=== PATIENT | male | born 1935 | race Caucasian/White ===

== ENCOUNTER 2017-10-15 08:34 | Emergency (ER) | payer MEDICARE ==
[2017-10-15 08:43] VITALS: BMI 26.5
[2017-10-15 08:44] VITALS: BP 203/79; PULSE 80; RESP 20; TEMP 96.4
[2017-10-15 08:52] VITALS: O2SAT 98
[2017-10-15 09:52] LABS: BASO % 0.5 % (0.0-2.0); EOS # 0.2 K/uL (0.0-0.7); EOS % 2.7 % (0.0-4.0); HEMATOCRIT 34.5 % (35.0-51.0); LYMPH # 1.7 K/uL (1.0-4.3); LYMPH % 29.2 % (20.0-40.0); MEAN CELL VOLUME 89.5 fl (80.0-94.0); MEAN CORPUSCULAR HEMOGLOBIN 30.1 pg (27.0-31.0); MEAN CORPUSCULAR HGB CONC 33.7 g/dL (33.0-37.0); MEAN PLATELET VOLUME 8.2 fl (7.2-11.7); MONO # 0.7 K/uL (0.0-0.8); MONO % 12.7 % (0.0-10.0); NEUT # 3.1 K/uL (1.8-7.0); NEUT % 54.9 % (50.0-75.0); NRBC % 0.3 % (0.0-0.0); RED CELL DISTRIBUTION WIDTH 13.5 % (11.5-14.5); WHITE BLOOD COUNT 5.7 K/uL (4.8-10.8)
[2017-10-15 09:59] LABS: PARTIAL THROMBOPLASTIN TIME 30.1 Seconds (25.6-37.1)
[2017-10-15 10:10] LABS: ALB/GLOB RATIO 1.3 (1.0-2.1); BILIRUBIN,TOTAL 0.9 mg/dl (0.2-1.3); CALCIUM 8.5 mg/dL (8.4-10.2); CARBON DIOXIDE 25 mmol/L (22-30); CHLORIDE 105 mmol/L (98-107); GFR AFRICAN-AMERICAN > 60; GLUCOSE,RANDOM 132 mg/dL (75-110); SODIUM 138 mmol/l (132-148); TOTAL PROTEIN 7.3 G/DL (6.3-8.2)
[2017-10-15 10:17] LABS: ALKALINE PHOSPHATASE 39 U/L (38-126); ALT/SGPT 33 U/L (21-72); AST/SGOT 30 U/L (17-59)
[2017-10-15 10:18] LABS: BLOOD UREA NITROGEN 15 mg/dl (9-20)
[2017-10-15] MEDS ORDERED: Iohexol 300 100 ML IJ ONE (10:48)
[2017-10-15] MEDS ORDERED: Sodium Chloride 0.9% 50 ML IV ONE (10:48)
--- NOTE | 2017-10-15 11:21 | CT ---
PROCEDURE: CT Abdomen and Pelvis with contrast HISTORY: abd pain rectal bleeding COMPARISON: None. TECHNIQUE: Contrast dose: 95 mL Omnipaque 300 Radiation dose: Total exam DLP = 672.7 mGy-cm. This CT exam was performed using one or more of the following dose reduction techniques: Automated exposure control, adjustment of the mA and/or kV according to patient size, and/or use of iterative reconstruction technique. FINDINGS: LOWER THORAX: Bibasilar subpleural fibrotic changes. LIVER: Steatosis. No gross lesion or ductal dilatation. GALLBLADDER AND BILE DUCTS: Unremarkable. PANCREAS: Unremarkable. No gross lesion or ductal dilatation. SPLEEN: Unremarkable. ADRENALS: Unremarkable. No mass. KIDNEYS AND URETERS: Right lower pole 4.2 x 5.8 centimeters cyst. Additional bilateral subcentimeter too small to characterize hypodensities, likely cysts. No hydronephrosis. No solid mass. VASCULATURE: Unremarkable. No aortic aneurysm. BOWEL: Severe colonic diverticulosis without diverticulitis. No obstruction. No gross mural thickening. APPENDIX: Normal appendix. PERITONEUM: Unremarkable. No free fluid. No free air. LYMPH NODES: Prominent right inguinal lymph node measuring 3.0 x 1.7 centimeter (series 3, image 159). BLADDER: Partial herniation into the left inguinal canal. REPRODUCTIVE: Unremarkable. BONES: Spinal and pelvic degenerative changes. OTHER FINDINGS: None. IMPRESSION: Severe colonic diverticulosis without evidence for acute diverticulitis. 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 Additional findings as above. Findings conveyed to Dr. Donovan by Dr. Morrison at 11:17 a.m. on 10/15/2017.
--- NOTE | 2017-10-15 12:11 | ED PDOC ---
HPI: General Adult Time Seen by Provider: 10/15/17 08:51 Chief Complaint (Nursing): GI Problem Chief Complaint (Provider): Rectal bleeding History Per: Patient History/Exam Limitations: no limitations Onset/Duration Of Symptoms: Days (x1) Additional Complaint(s): Angel Harvey is an 82 year old male, with a past medical history of HTN and diabetes, who presents to the emergency department complaining of rectal bleeding and intermittent right sided abdominal pain onset since last night. Patient reports no bleeding in between bowel movements. He denies any rectal pain, vomit, diarrhea or fever. No further medical complaints. PMD: None provided. Past Medical History Reviewed: Historical Data, Nursing Documentation, Vital Signs Vital Signs: Last Vital Signs Temp 96.4 F L 10/15/17 08:43 Pulse 80 10/15/17 08:43 Resp 20 10/15/17 08:43 BP 203/79 H 10/15/17 08:48 Pulse Ox 98 10/25/17 10:43 - Medical History PMH: Diabetes, HTN, Hypercholesterolemia - Surgical History Surgical History: No Surg Hx - Family History Family History: States: Unknown Family Hx - Social History Current smoker - smoking cessation education provided: No Alcohol: None Drugs: Denies - Home Medications Home Medications: Ambulatory Orders Medication Instructions Recorded Furosemide [Lasix] 20 mg PO DAILY 09/30/16 GlipiZIDE [Glipizide] 10 mg PO BID 09/30/16 Losartan [Cozaar] 25 mg PO DAILY 09/30/16 MetFORMIN [glucOPHAGE] 1,000 mg PO BID 09/30/16 Simvastatin [Zocor] 40 mg PO DAILY 09/30/16 amLODIPine [Norvasc] 10 mg PO DAILY 09/30/16 - Allergies Allergies/Adverse Reactions: Allergies Allergy/AdvReac Type Severity Reaction Status Date / Time No Known Allergies Allergy Verified 10/15/17 08:48 Review of Systems ROS Statement: Except As Marked, All Systems Reviewed And Found Negative Constitutional: Negative for: Fever Gastrointestinal: Positive for: Abdominal Pain (intermittent right sided), Other (blood in stool). Negative for: Vomiting, Diarrhea, Rectal Pain Physical Exam - Reviewed Nursing Documentation Reviewed: Yes Vital Signs Reviewed: Yes - Physical Exam Appears: Positive for: Well, Non-toxic, No Acute Distress Head Exam: Positive for: ATRAUMATIC, NORMAL INSPECTION, NORMOCEPHALIC Skin: Positive for: Normal Color, Warm, Dry Eye Exam: Positive for: EOMI, Normal appearance, PERRL Neck: Positive for: Normal, Painless ROM, Supple Cardiovascular/Chest: Positive for: Regular Rate, Rhythm. Negative for: Murmur Respiratory: Positive for: Normal Breath Sounds. Negative for: Respiratory Distress Gastrointestinal/Abdominal: Positive for: Normal Exam, Bowel Sounds, Soft. Negative for: Tenderness, Guarding, Rebound Back: Positive for: Normal Inspection. Negative for: L CVA Tenderness, R CVA Tenderness Rectal: Positive for: Hemorrhoids (external, appear normal. ). Negative for: Tenderness, Other (melena, no bleeding. [employer] vet tech) Extremity: Positive for: Normal ROM. Negative for: Pedal Edema, Deformity, Swelling Neurologic/Psych: Positive for: Alert, Oriented - Laboratory Results Result Diagrams: 10/15/17 09:41 10/15/17 09:41 - ECG O2 Sat by Pulse Oximetry: 98 (RA) Pulse Ox Interpretation: Normal Medical Decision Making Medical Decision Making: Initial Impression: Rectal bleeding. Differential includes: diverticulitis, diverticulosis, hemorrhoids Initial Plan: --Type and screen --Abd & Pelvis IV contrast only --Comp Metabolic Panel --CBC w/ differential --PTT --PT --reevaluation 1119 Abd/Pelvis CT FINDINGS: LOWER THORAX: Bibasilar subpleural fibrotic changes. LIVER: Steatosis. No gross lesion or ductal dilatation. GALLBLADDER AND BILE DUCTS: Unremarkable. PANCREAS: Unremarkable. No gross lesion or ductal dilatation. SPLEEN: Unremarkable. ADRENALS: Unremarkable. No mass. KIDNEYS AND URETERS: Right lower pole 4.2 x 5.8 centimeters cyst. Additional bilateral subcentimeter too small to characterize hypodensities, likely cysts. No hydronephrosis. No solid mass. VASCULATURE: Unremarkable. No aortic aneurysm. BOWEL: Severe colonic diverticulosis without diverticulitis. No obstruction. No gross mural thickening. APPENDIX: Normal appendix. PERITONEUM: Unremarkable. No free fluid. No free air. LYMPH NODES: Prominent right inguinal lymph node measuring 3.0 x 1.7 centimeter (series 3, image 159). BLADDER: Partial herniation into the left inguinal canal. REPRODUCTIVE: Unremarkable. BONES: Spinal and pelvic degenerative changes. OTHER FINDINGS: None. IMPRESSION: Severe colonic diverticulosis without evidence for acute diverticulitis. 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 Additional findings as above. Scribe Attestation: Documented by Wang Martell, acting as a scribe for Yogi Donovan MD Provider Scribe Attestation: All medical record entries made by the Scribe were at my direction and personally dictated by me. I have reviewed the chart and agree that the record accurately reflects my personal performance of the history, physical exam, medical decision making, and the department course for this patient. I have also personally directed, reviewed, and agree with the discharge instructions and disposition. Disposition - Clinical Impression Clinical Impression: Hemorrhoids, Rectal bleeding - Patient ED Disposition Is Patient to be Admitted: No Doctor Will See Patient In The: Office Counseled Patient/Family Regarding: Studies Performed, Diagnosis, Need For Followup - Disposition Referrals: [facility] [Outside] Disposition: Routine/Home Disposition Time: 13:00 Condition: GOOD Additional Instructions: Return for worsening. Follow up with your PCP in 2-3 days. Instructions: Hemorrhoids (ED), Rectal Bleeding (ED)
== END 2017-10-15 13:40 | disposition home or self-care (01) ==
LOC: H.ER 08:34
DX: K64.9 Unspecified hemorrhoids (principal); K62.5 Hemorrhage of anus and rectum; E11.9 Type 2 diabetes mellitus without complications; I10 Essential (primary) hypertension; Z79.84 Long term (current) use of oral hypoglycemic drugs
CPT/HCPCS: 74177; 80053; 85025; 85610; 85730; 86850; 86900; 99282; Q9967

== ENCOUNTER 2019-04-05 11:18 | Emergency (ER) | payer MEDICARE ==
[2019-04-05 11:24] VITALS: BMI 27.9
[2019-04-05 11:26] VITALS: RESP 18
[2019-04-05 11:27] VITALS: O2SAT 99
[2019-04-05] MEDS ORDERED: Albuterol-Ipratrop 3 mg / 0.5 (3 ml) UD INH STA (12:12)
--- NOTE | 2019-04-05 12:15 | ED PDOC ---
HPI: CCC, URI, Sore Throat Time Seen by Provider: 04/05/19 11:36 Chief Complaint (Nursing): Cough, Cold, Congestion Chief Complaint (Provider): cough, SOB History Per: Patient History/Exam Limitations: no limitations Onset/Duration Of Symptoms: Days (1-2 weeks), Gradual Current Symptoms Are (Timing): Still Present Location Of Pain: Throat, Headache (mild) Sick Contacts (Context): None Associated Symptoms: Sore Throat, Cough. denies: Fever, Vomiting, Diarrhea Severity: Moderate Additional Complaint(s): 83yo male c/o cough and mild SOB, ongoing 1-2 weeks, was visiting [place] and returned here yesterday. Denies myalgias, fever, orthopnea or weakness. Denies prior hx asthma or pneumonia. PMD [id number] Past Medical History Reviewed: Historical Data, Nursing Documentation, Vital Signs Vital Signs: Last Vital Signs Temp 97.9 F 04/05/19 11:24 Pulse 77 04/05/19 11:24 Resp 18 04/05/19 11:24 BP 145/64 04/05/19 11:24 Pulse Ox 99 04/05/19 11:24 Primary Care Provider: Procedure,Nonphys - Medical History PMH: Diabetes, HTN, Hypercholesterolemia Denies: Chronic Kidney Disease - Surgical History Surgical History: Hernia Repair, Tonsillectomy - Family History Family History: States: Unknown Family Hx - Home Medications Home Medications: Ambulatory Orders Medication Instructions Recorded Furosemide [Lasix] 20 mg PO DAILY 09/30/16 GlipiZIDE [Glipizide] 10 mg PO BID 09/30/16 Losartan [Cozaar] 25 mg PO DAILY 09/30/16 MetFORMIN [glucOPHAGE] 1,000 mg PO BID 09/30/16 Simvastatin [Zocor] 40 mg PO DAILY 09/30/16 amLODIPine [Norvasc] 10 mg PO DAILY 09/30/16 Azithromycin [Zithromax] 250 mg PO DAILY #6 tab 04/05/19 guaiFENesin [guaifENESIN] 100 mg PO Q6 PRN #100 ml 04/05/19 - Allergies Allergies/Adverse Reactions: Allergies Allergy/AdvReac Type Severity Reaction Status Date / Time No Known Allergies Allergy Verified 10/15/17 08:48 Review of Systems ROS Statement: Except As Marked, All Systems Reviewed And Found Negative Constitutional: Negative for: Fever, Weakness, Malaise Eyes: Negative for: Vision Change ENT: Negative for: Ear Pain Cardiovascular: Negative for: Chest Pain Respiratory: Positive for: Cough. Negative for: Shortness of Breath Gastrointestinal: Negative for: Abdominal Pain Genitourinary Male: Negative for: Dysuria Musculoskeletal: Negative for: Neck Pain, Back Pain Skin: Negative for: Rash, Lesions Neurological: Negative for: Weakness Physical Exam - Reviewed Nursing Documentation Reviewed: Yes Vital Signs Reviewed: Yes - Physical Exam Appears: Positive for: Well, Non-toxic, No Acute Distress Head Exam: Positive for: ATRAUMATIC, NORMAL INSPECTION, NORMOCEPHALIC Skin: Positive for: Normal Color, Warm, DRY Eye Exam: Positive for: EOMI, Normal appearance, PERRL ENT: Positive for: Normal ENT Inspection Neck: Positive for: Normal, Painless ROM Cardiovascular/Chest: Positive for: Regular Rate, Rhythm Respiratory: Positive for: Decreased Breath Sounds. Negative for: Respiratory Distress Gastrointestinal/Abdominal: Positive for: Normal Exam, Soft Back: Positive for: Normal Inspection Extremity: Positive for: Normal ROM Neurological/Psych: Positive for: Awake, Alert, Normal Tone - Laboratory Results Result Diagrams: 04/05/19 12:25 04/05/19 12:25 - ECG ECG: Positive for: Interpreted By Me ECG Rhythm: Positive for: Normal ST Segment, Sinus Rhythm, Nonspecific Changes Rate: 76 O2 Sat by Pulse Oximetry: 99 Pulse Ox Interpretation: Normal Medical Decision Making Medical Decision Making: Time: 1212 Plan: EKG BNP CMP Troponin I CBC CXR Duoneb 3 ml INH Peak Flow Pre/Post TX .Pre/Post Treatment Influenza A B Time: 1510 CXR and labs are unremarkable. Patient feels better in ED. No shortness of breath and minimal cough. Lungs remain clear. Given productive cough, ongoing for two weeks, patient prescribed Zithromax and advised to followup with Dr. Salgado this week. Return parameters discussed. Disposition - Clinical Impression Clinical Impression: Bronchitis, Cough - Patient ED Disposition Is Patient to be Admitted: No Counseled Patient/Family Regarding: Studies Performed, Diagnosis, Need For Follo wup, Rx Given - Disposition Disposition Time: 14:01 Condition: STABLE Additional Instructions: Take medications as directed. Use robitussin as needed for cough. Drink plenty of fluids. Followup with PMD in 2-3 days. Prescriptions: Azithromycin [Zithromax] 250 mg PO DAILY #6 tab guaiFENesin [guaifENESIN] 100 mg PO Q6 PRN #100 ml PRN Reason: cough Instructions: Cough in Adults, Acute Bronchitis Forms: [facility] (German)
[2019-04-05 12:16] VITALS: PULSE 76
[2019-04-05] MEDS ORDERED: Albuterol-Ipratrop 3 mg / 0.5 (3 ml) UD ONE (12:20)
[2019-04-05 12:49] LABS: BASO % 0.6 % (0.0-2.0); EOS # 0.4 K/uL (0.0-0.7); EOS % 5.9 % (0.0-4.0); HEMOGLOBIN 11.2 g/dL (12.0-18.0); LYMPH # 2.1 K/uL (1.0-4.3); LYMPH % 32.9 % (20.0-40.0); MEAN CORPUSCULAR HEMOGLOBIN 30.7 pg (27.0-31.0); MEAN CORPUSCULAR HGB CONC 33.7 g/dL (33.0-37.0); MEAN PLATELET VOLUME 7.5 fl (7.2-11.7); MONO # 0.8 K/uL (0.0-0.8); MONO % 12.3 % (0.0-10.0); NEUT # 3.1 K/uL (1.8-7.0); NEUT % 48.3 % (50.0-75.0); NRBC % 0.1 % (0.0-0.0); RBC 3.64 Mil/uL (4.40-5.90); RED CELL DISTRIBUTION WIDTH 13.8 % (11.5-14.5); WHITE BLOOD COUNT 6.4 K/uL (4.8-10.8)
[2019-04-05 13:00] LABS: ALB/GLOB RATIO 1.3 (1.0-2.1); ALBUMIN 4.3 g/dL (3.5-5.0); ALT/SGPT 27 U/L (21-72); AST/SGOT 27 U/L (17-59); BLOOD UREA NITROGEN 15 mg/dl (9-20); CALCIUM 8.7 mg/dL (8.4-10.2); GFR NON-AFRICAN AMERICAN > 60
--- NOTE | 2019-04-05 13:00 | RAD ---
Date of service: 04/05/2019 HISTORY: cough SOB COMPARISON: No prior. TECHNIQUE: Chest PA and lateral views FINDINGS: LUNGS: No active pulmonary disease. PLEURA: No significant pleural effusion identified. No pneumothorax apparent. CARDIOVASCULAR: No aortic atherosclerotic calcification present. Normal cardiac size. No pulmonary vascular congestion. OSSEOUS STRUCTURES: No significant abnormalities. VISUALIZED UPPER ABDOMEN: Normal. OTHER FINDINGS: None. IMPRESSION: No active disease.
[2019-04-05 13:12] LABS: B-TYPE NATRIURETIC PEPTIDE 48.6 pg/ml (0-900)
[2019-04-05 15:22] VITALS: BP 142/71; TEMP 98.5
--- NOTE | 2019-04-06 17:59 | CARD ---
APPROVED REPORT Date of service: 04/05/2019 EKG Measurement Heart [id number] <Conclusion> Normal sinus rhythm Baseline artifact Otherwise normal ECG
== END 2019-04-05 15:16 | disposition home or self-care (01) ==
LOC: H.ER 11:18
DX: J40 Bronchitis, not specified as acute or chronic (principal); R05 Cough